=== PATIENT | male | born 1970 | race Caucasian/White ===

== ENCOUNTER 2017-09-12 18:28 | Emergency (ER) | payer OTHER ==
[~2017-09-12] VITALS: Ht 167.6 cm; Wt 118.8 kg
[2017-09-12 19:17] LABS: HEMATOCRIT 43.6 % (38.0-50.0); MCH 27.1 PG (29.0-34.0); MCHC 32.8 G/DL (30.0-36.0); MCV 82.6 FL (86-99); PLATELET COUNT 268 K/uL (156-360); RBC DIS.WIDTH-CV 14.2 % (11.8-14.6); RBC DIS.WIDTH-SD 42.8 % (39-53); RED BLOOD COUNT 5.28 M/uL (4.00-5.50); WHITE BLOOD COUNT 12.9 K/uL (4.1-10.2)
[2017-09-12 19:25] LABS: CHLORIDE 104 mEq/L (99-109); POTASSIUM 4.1 mEq/L (3.7-5.4); SODIUM 140 mEq/L (136-147)
[2017-09-12 19:27] LABS: GLUCOSE 128 mg/dL (70-99)
[2017-09-12 19:29] LABS: ANION GAP 12 MEQ/L (2-14); TOTAL BILIRUBIN 0.3 mg/dL (0.0-1.0)
[2017-09-12 19:31] LABS: ALKALINE PHOSPHATASE 92 IU/L (3-129); GFR ESTIMATE (CALCULATED) 41 mL/min/
[2017-09-12 19:32] LABS: UREA NITROGEN (BUN) 19 mg/dL (9-23)
[2017-09-12 19:47] LABS: ADD MIUA? YES; BILIRUBIN NEGATIVE; BLOOD LARGE; COLOR YELLOW ((YELLOW)); GLUCOSE (STRIP) NEGATIVE; KETONES NEGATIVE; LEUKOCYTES NEGATIVE; NITRITE NEGATIVE; PROTEIN (STRIP) 30; SPECIFIC GRAVITY 1.019 (1.000-1.030); UROBILINOGEN 0.2 MG/DL (0.2-1.0)
[2017-09-12 19:56] LABS: BACTERIA NONE SEEN /HPF; EPITHELIAL CELLS NONE SEEN /HPF; GRANULAR CASTS 0-5 /LPF; MUCUS 1+ /LPF; RED BLOOD CELLS TNTC /HPF (0-5); UCUL ADDED? YES; WHITE BLOOD CELLS 0-5 /HPF (0-5)
[2017-09-12] MEDS ORDERED: NORCO 5/3251 TABLET PO (23:38)
[2017-09-13 00:10] VITALS: BP 105/67
[2017-09-14] MEDS ORDERED: ASPIRIN81 M2 PO (14:55)
[2017-09-14] MEDS ORDERED: VALSARTAN320 MG PO (14:55)
[2017-09-14] MEDS ORDERED: PRAVACHOL40 MG PO (14:56)
[2017-09-14] MEDS ORDERED: PROTONIX40 MG PO (14:56)
[2017-09-14] MEDS ORDERED: AMARYL2 MG PO (14:56)
[2017-09-14] MEDS ORDERED: METFORMIN HCL500 MG PO (14:56)
[2017-09-14] MEDS ORDERED: TRULICITY0.75 MG/0. SC (14:57)
[2017-09-14] MEDS ORDERED: ZYBAN 150 MG T150 MG PO (14:57)
== END 2017-09-13 00:15 | disposition home or self-care (01) ==
LOC: EME 18:28
DX: N10 Acute pyelonephritis (principal); E11.65 Type 2 diabetes mellitus with hyperglycemia; N28.9 Disorder of kidney and ureter, unspecified; K40.90 Unilateral inguinal hernia, without obstruction or gangrene, not specified as recurrent; R00.0 Tachycardia, unspecified
CPT/HCPCS: 74176; 80053; 81003; 83605; 85027; 87040; 87086; 99281; 99285; J0696; J2405; J3010; J7030; J7050

== ENCOUNTER → 2017-11-28 | Outpatient (CLI) | payer OTHER ==
[~2017-11-28] VITALS: Ht 172.7 cm; Wt 122.5 kg
[~2017-11-28] MED LIST: AMARYL2 MG PO; ASPIR 8181 M1 PO; DIOVAN160 MG PO; METFORMIN HCL500 MG PO; NORCO 5/3251 TABLET PO; NORVASC5 MG PO; PRAVACHOL40 MG PO; PROTONIX40 MG PO; TRULICITY0.75 MG/0. SC; TYLENOL EXTRA500 MG PO; WELLBUTRIN SR150 MG PO
== END | disposition home or self-care (01) ==
LOC: AMB 07:18
PROVIDERS: Urology
PROC: 0TF3XZZ Fragmentation in Right Kidney Pelvis, External Approach (ICD-10-PCS; principal; 2017-11-28)
DX: N20.0 Calculus of kidney (principal); N40.0 Benign prostatic hyperplasia without lower urinary tract symptoms; E27.9 Disorder of adrenal gland, unspecified; I12.9 Hypertensive chronic kidney disease with stage 1 through stage 4 chronic kidney disease, or unspecified chronic kidney disease; E11.22 Type 2 diabetes mellitus with diabetic chronic kidney disease; N18.9 Chronic kidney disease, unspecified; E78.5 Hyperlipidemia, unspecified; K21.9 Gastro-esophageal reflux disease without esophagitis; Z68.41 Body mass index [BMI] 40.0-44.9, adult; Z79.84 Long term (current) use of oral hypoglycemic drugs; Z79.82 Long term (current) use of aspirin
CPT/HCPCS: 74018; 74021; 82948; 93005; J1100; J2405

== ENCOUNTER → 2018-02-16 | Outpatient (CLI) | payer OTHER ==
[~2018-02-16] MED LIST changes: +DIOVAN320 MG PO; +FLOMAX0.4 MG PO; +VICTOZA0.6 MG/0.1 SC
== END | disposition home or self-care (01) ==
LOC: CDC 09:13
DX: Z01.810 Encounter for preprocedural cardiovascular examination (principal); N20.0 Calculus of kidney; R00.0 Tachycardia, unspecified; R94.31 Abnormal electrocardiogram [ECG] [EKG]
CPT/HCPCS: 93000

== ENCOUNTER → 2018-02-22 | Outpatient (CLI) | payer OTHER ==
[~2018-02-22] MED LIST changes: +IRON325 M1 PO
[2018-02-22 09:21] LABS: HEMATOCRIT 42.4 % (38.0-50.0); HEMOGLOBIN 13.7 G/DL (12.5-16.6); MCH 25.9 PG (29.0-34.0); MCHC 32.3 G/DL (30.0-36.0); MCV 80.3 FL (86-99); PLATELET COUNT 260 K/uL (156-360); RBC DIS.WIDTH-CV 14.9 % (11.8-14.6); RBC DIS.WIDTH-SD 43.7 % (39-53); RED BLOOD COUNT 5.28 M/uL (4.00-5.50); WHITE BLOOD COUNT 10.8 K/uL (4.1-10.2)
[2018-02-22 09:28] LABS: INTER. NORMALIZED RATIO 1.1
[2018-02-22 09:30] LABS: PTT 30.3 SEC (25-37)
== END | disposition home or self-care (01) ==
LOC: OPR 08:26 → EDSTATUS 09:00 → OPR 09:00
PROVIDERS: Urology
PROC: 0TJ5XZZ Inspection of Kidney, External Approach (ICD-10-PCS; principal; 2018-02-22)
PROC: 0TH53YZ Insertion of Other Device into Kidney, Percutaneous Approach (ICD-10-PCS; 2018-02-22)
DX: N20.0 Calculus of kidney (principal); Z53.09 Procedure and treatment not carried out because of other contraindication
CPT/HCPCS: 49406; 85027; 85610; 85730; C1766; C1894; J0131; J3010

== ENCOUNTER 2018-02-24 05:24 | Day surgery (SDC) | payer OTHER ==
[~2018-02-24] VITALS: Ht 172.7 cm; Wt 122.5 kg
[2018-02-24 06:08] VITALS: BP 142/93
[2018-02-24 11:00] VITALS: BP 108/71
[2018-02-24 11:29] VITALS: BP 121/80
== END 2018-02-24 11:40 | disposition home or self-care (01) ==
LOC: SDC
PROVIDERS: Urology
DX: N20.0 Calculus of kidney (principal); N13.39 Other hydronephrosis; N40.1 Benign prostatic hyperplasia with lower urinary tract symptoms; R39.14 Feeling of incomplete bladder emptying; R39.12 Poor urinary stream; E11.22 Type 2 diabetes mellitus with diabetic chronic kidney disease; N18.9 Chronic kidney disease, unspecified; E78.5 Hyperlipidemia, unspecified; K21.9 Gastro-esophageal reflux disease without esophagitis; Z79.84 Long term (current) use of oral hypoglycemic drugs; Z79.82 Long term (current) use of aspirin
CPT/HCPCS: 74018; 76000; 82948; C1726; C1758; C1769; C1894; C2625; J0131; J0330; J0690; J1100; J1580; J2250; J2405; J2710; J2765; J3010; J7050; J7643